=== PATIENT | male | born 1955 | race African-American/Black ===

== ENCOUNTER 2021-08-11 17:00 | Emergency (ER) | payer MEDICARE, MEDICAID ==
[~2021-08-11] VITALS: Ht 180.3 cm; Wt 90.7 kg
[2021-08-11 17:35] LABS: URINE BILIRUBIN NEGATIVE (Negative); URINE BLOOD NEGATIVE (Negative); URINE CLARITY CLEAR; URINE COLOR YELLOW; URINE GLUCOSE-RANDOM NEGATIVE (Negative); URINE KETONES NEGATIVE (Negative); URINE LEUKOCYTES-REFLEX NEGATIVE (Negative); URINE NITRITE-REFLEX NEGATIVE (Negative); URINE PROTEIN NEGATIVE (Negative); URINE UROBILINOGEN 0.2 E.U./dl (0.2-1.0)
[2021-08-11 17:36] LABS: ABSOLUTE BASOPHILS 0.1 thou/uL (0.0-0.2); ABSOLUTE EOSINOPHILS 0.2 thou/uL (0.0-0.7); ABSOLUTE LYMPHOCYTES 1.3 thou/uL (0.8-5.3); ABSOLUTE MONOCYTES 0.6 thou/uL (0.0-1.2); ABSOLUTE NEUTROPHILS 3.3 thou/uL (1.6-8.1); BASOPHILS 1.3 %; EOSINOPHILS 3.9 %; HEMATOCRIT 40.4 % (42.0-52.0); HEMOGLOBIN 13.1 gm/dL (14.0-18.0); LYMPHOCYTES 23.8 %; MCHC 32.5 g/dL (28.0-37.0); MCV 86.1 fL (80.0-100.0); MONOCYTES 10.5 %; MPV 8.3 fl. (7.2-11.1); NUCLEATED RBCS 0 /100WBC; PLATELET COUNT* 217 thou/uL (150-400); POLYS 60.5 %; RBC 4.69 mil/uL (4.50-6.00); RDW-CV 14.4 % (10.5-14.5); WBC 5.5 thou/uL (4.0-11.0)
[2021-08-11 17:45] LABS: CREATININE 1.1 mg/dL (0.6-1.3); POTASSIUM 3.7 mmol/L (3.5-5.1)
[2021-08-11 17:49] LABS: ALBUMIN 3.7 g/dL (3.4-5.0); TOTAL BILIRUBIN 0.6 mg/dL (<0.1-1.0); TOTAL PROTEIN 7.2 g/dL (6.4-8.2)
[2021-08-11 20:05] VITALS: BP 102/61
--- NOTE | 2021-08-12 11:09 | EKG ---
[place] [address] ELECTROCARDIOGRAM REPORT Name: CESAR CARR Room: [facility]#: [id number] Admission: 08/11/21 Attend Phys: Discharge: 08/11/21 Date of : 57 Date of Service: 08/11/211711 Report #: [id number] THIS REPORT FOR: //name// [facility] ED Test Date: 2021-08-11 Test Time: 17:12:57 Pat Name: CESAR CARR Department: Room: Gender: Departmental Buyer: Gerardo : 1955 Requested By: Sen Rothman Order Number: [id number] MD: Victor Manuel López Measurements Intervals [place] Rate: 67 P: 45 CA: 171 QRS: -98 QRSD: 161 T: 75 QT: 484 QTc: 511 Interpretive Statements Sinus rhythm RBBB and LAFB No previous ECG available for comparison Electronically Signed On 08-12-2021 11:09:09 [employer] by Victor Manuel López [email or web address] <ELECTRONICALLY SIGNED> By: Daneil López MD, [facility] 08/12/219 11 11 Daniel López MD, [facility] /EPI
== END 2021-08-11 20:06 | disposition home or self-care (01) ==
LOC: M.ERS 17:00
PROVIDERS: Emergency Medicine Emergency Medical Services
DX: R06.02 Shortness of breath (principal); M54.50 Low back pain, unspecified; R00.2 Palpitations; E11.9 Type 2 diabetes mellitus without complications; Z88.8 Allergy status to other drugs, medicaments and biological substances